=== PATIENT | male | born 1975 | race Caucasian/White ===

== ENCOUNTER 2016-09-28 15:18 | Emergency (ER) | payer OTHER ==
[2016-09-28 15:34] VITALS: BP 138/88
[2016-09-28] MEDS ORDERED: Ketorolac INJ* 30 MG/ML 1 ML VIAL IM ONE (16:19)
--- NOTE | 2016-09-28 16:25 | UC ---
Complaint Male HPI - HPI Summary HPI Summary: 40 year old male with complaints of right flank pain. Pain has been intermittent over the last 2 weeks. This afternoon pain became sharp. Denies fever, chills, nausea or vomiting. Denies problems or pain with urinating. Denies blood in the urine. Denies abdominal pain Hx of kidney stones 3 years ago. Was told he had more stones at that time No urology follow up - History of Current Complaint Chief Complaint: UCBackPain Stated Complaint: LOWER BACK PAIN Time Seen by Provider: 09/28/16 16:04 Hx Obtained From: Patient Onset/Duration: Gradual Onset, Lasting Weeks - 2, Worse Since - today Timing: Intermittent Severity Initially: Mild Severity Currently: Moderate Pain Scale Used: 0-10 Numeric - 8 Location: Flank - right Aggravating Factor(s): Nothing Associated Signs And Symptoms: Negative: Diaphoresis, Fever, Hematuria, Dysuria , Constipation, Blood in Stool, Rectal Pain, Appetite, Nausea, Vomiting(# Of Episodes =), Penile Swelling, Penile Discharge - Risk Factors Testicular Torsion: Negative - Allergies/Home Medications Allergies/Adverse Reactions: Allergies Allergy/AdvReac Type Severity Reaction Status Date / Time No Known Allergies Allergy Verified 09/28/16 15:34 PMH/Surg Hx/FS Hx/Imm Hx Previously Healthy: Yes Endocrine History Of: Denies: Thyroid Disease Cardiovascular History Of: Denies: Hypertension GI/ History Of: Reports: Renal Disease - KIDNEY STONES - Surgical History Surgical History: None - Family History Known Family History: Negative: Cardiac Disease, Hypertension, Diabetes - Social History Occupation: Employed Full-time Lives: With Family Alcohol Use: None Substance Use Type: None Smoking Status (MU): Never Smoked Tobacco Review of Systems Constitutional: Negative Skin: Negative Eyes: Negative ENT: Negative Respiratory: Negative Cardiovascular: Negative Gastrointestinal: Negative Genitourinary: Other - right flank pain Motor: Negative Neurovascular: Negative Musculoskeletal: Negative Neurological: Negative Psychological: Negative All Other Systems Reviewed And Are Negative: Yes Physical Exam Triage Information Reviewed: Yes Appearance: Well-Nourished, Ill-Appearing - mild, Pain Distress - mild Vital Signs: Initial Vital Signs Temp 98.4 F 09/28/16 15:31 Pulse 64 09/28/16 15:31 Resp 18 09/28/16 15:31 BP 138/88 09/28/16 15:31 Pulse Ox 97 09/28/16 15:31 Vital Signs Reviewed: Yes Eyes: Positive: Conjunctiva Clear. Negative: Discharge ENT: Positive: Hearing grossly normal. Negative: Pharyngeal erythema, Nasal congestion Neck: Positive: Supple, Nontender Respiratory: Positive: Lungs clear, Normal breath sounds Cardiovascular: Positive: RRR, No Murmur Abdomen Description: Positive: Nontender, No Organomegaly, Soft. Negative: CVA Tenderness (R), CVA Tenderness (L) Musculoskeletal: Positive: Strength Intact, ROM Intact Neurological: Positive: Alert, Muscle Tone Normal Psychological: Positive: Age Appropriate Behavior - pleasant and cooperative Skin: Negative: rashes, breakdown Complaint Male Course/Dx - Course Course Of Treatment: Toradol IM - with moderate relief of his pain. UA - concentrated urine. No imagine available here at today. Encourated increase fluids such as water. Education on how to management pain with ibuprofen. Education on straining urine. Follow up plan established - Differential Dx/Diagnosis Differential Diagnosis/HQI/PQRI: Urinary Tract Infection, Other - kidney stone Provider Diagnoses: Right flank pain. Likely kidney stone Discharge - Discharge Plan Condition: Stable Disposition: HOME Prescriptions: Ibuprofen TAB* [Motrin TAB* 800 MG] 800 mg PO Q6H PRN #30 tab PRN Reason: Pain Patient Education Materials: Flank Pain (ED), Kidney Stones (ED), Ibuprofen ( By mouth) Referrals: Herson Ernst MD [Primary Care Provider] - 2 Days Christiano Penny MD [Medical Doctor] - 1 Week Additional Instructions: Increase your fluids
== END 2016-09-28 17:03 | disposition home or self-care (01) ==
LOC: UCEAST 15:18
DX: R10.30 Lower abdominal pain, unspecified (principal); Z87.442 Personal history of urinary calculi
CPT/HCPCS: 81002; 96372; 99212; G0463; J1885

== ENCOUNTER 2017-06-03 19:50 | Emergency (ER) | payer OTHER ==
--- NOTE | 2017-06-03 20:55 | RAD ---
INDICATION: Right flank pain COMPARISON: CT April 26, 2010 TECHNIQUE: Noncontrast axial source images were acquired from the level hemidiaphragms to the symphysis pubis as part of CT imaging for renal stone. Lung bases: The lung bases are clear. Liver: The liver is enlarged with findings of hepatic steatosis. Noncontrast imaging shows no evidence of a hepatic mass or ductal dilatation. Gallbladder: There is cholelithiasis. There is no thickening of the gallbladder wall or pericholecystic fluid. Spleen: The spleen is normal in size. The noncontrast CT appearance is normal. Pancreas: Noncontrast imaging shows no pancreatic mass or ductal dilitation. Adrenal glands: No masses are identified. Kidneys/Bladder: There are multiple nonobstructive right renal calculi. These measure 2 to 3 mm. There are no other calculi of urinary significance. There is no mass on noncontrast imaging. The bladder appears normal. Adenopathy: There is no evidence of intraperitoneal or retroperitoneal adenopathy. Evaluation is limited without oral contrast. Fluid collections: There are no free or localized fluid collections. Vessels: The aorta and iliac vessels are normal in caliber. There are no significant atherosclerotic changes. The IVC appears normal Pelvic organs: The prostate and seminal vesicles appear normal GI tract: Evaluation of the bowel is limited without oral contrast. The stomach and small bowel appear grossly normal. There are scattered diverticula of the sigmoid colon but no CT evidence of acute diverticulitis. The lower GI tract is otherwise unremarkable. There are no obstructive findings. The appendix is visualized and appears normal. Soft tissues: No soft tissue abnormalities of the extraperitoneal abdomen or pelvis are identified. Osseous structures: There are no acute osseous findings. IMPRESSION: 1. Cholelithiasis. This may represent an incidental finding 2. Nonobstructive right renal calculi 3. Normal appendix 4. Scattered diverticula. No CT evidence of acute diverticulitis.
[2017-06-03 21:07] LABS: Hematocrit 40 % (42-52); Hemoglobin 13.6 g/dl (14.0-18.0); Mean Corpuscular HGB Conc 34 g/dl (31-36); Mean Corpuscular Hemoglobin 32 pg (27-31); Mean Corpuscular Volume 92 fL (80-94); Mean Platelet Volume 8 um3 (7.4-10.4); Red Blood Count 4.31 10^6/ul (4.0-5.4); Red Cell Distribution Width 13 % (10.5-15); White Blood Count 9.5 10^3/ul (3.5-10.8)
[2017-06-03] MEDS: NS 0.9% 1000 ML* 2,000 ML IV ONE ×2 (21:10→21:12)
[2017-06-03 21:22] LABS: Albumin 4.4 g/dL (3.2-5.2); BUN/Creatinine Ratio 14.3 (8-20); C Reactive Protein 2.81 mg/L (< 5.00); Calcium 9.4 mg/dL (8.6-10.3); EGFR African American 107.9 (>60); EGFR Non-African American 83.9 (>60); Potassium 3.5 mmol/L (3.5-5.0); Total Bilirubin 0.5 mg/dL (0.2-1.0); Total Protein 7.4 g/dL (6.4-8.9)
--- NOTE | 2017-06-03 21:40 | RAD ---
INDICATION: Right-sided nephrolithiasis. Hepatomegaly with hepatic steatosis and presumed incidental cholelithiasis on CT. COMPARISON: CT examination same date TECHNIQUE: Longitudinal and transverse scans of the right upper quadrant were obtained. Doppler interrogation of the hepatic and portal venous system was performed. FINDINGS: Liver: There is hepatomegaly with hepatic steatosis. There are no masses . The liver measures 19.7 cm in cephalocaudal dimension. Vessels: There is normal hepatic and portal venous flow. Bile ducts: There is no evidence of intrahepatic or extrahepatic ductal dilatation. The common duct measures 0.2 cm. Gallbladder: There is cholelithiasis. There may be a small gallbladder polyp. There is no evidence of thickening of the gallbladder wall or pericholecystic fluid. Pancreas: The pancreas is not visualized due to interfering bowel gas. Right kidney: The right kidney is normal in size and echogenicity. There are no masses or calculi. There is no evidence of hydronephrosis. The right kidney measures 12.3 x 5.9 x 7.7 cm. IVC and aorta: The aorta and superior vena cava appear normal. Fluid: There is no ascites. Other: None. IMPRESSION: Hepatomegaly with hepatic steatosis. Cholelithiasis.
[2017-06-03 22:13] LABS: Urine Bilirubin Negative (Negative); Urine Glucose Negative (Negative); Urine Nitrite Negative (Negative)
--- NOTE | 2017-06-03 22:31 | ED ---
Jeison Alexandre Rebecca, scribed for Adi Faulkner MD on 06/03/17 at 2027 . Back Pain - HPI Summary HPI Summary: Pt is a 41 y/o M who presents to ED c/o R flank pain. Sx began last night while at work and has been intermittent since onset. Currently, pain is mild ranked 1/ 10 but at its worst, the pain is 8/10. Pain does not radiate into the groin or down the LE. Sx aggravated and alleviated by nothing. Denies fever, chills, urinary frequency and hematuria. Confirms he has been eating normally. Prior similar episodes with Dx of kidney stones which which he took Vicodin which improved sx. - History of Current Complaint Chief Complaint: EDFlankPain Stated Complaint: PAIN LOWER BACK Time Seen by Provider: 06/03/17 20:08 Hx Obtained From: Patient Onset/Duration: Lasting Days - Yesterday, Still Present Onset/Duration: Still Present Back Pain Location: Is Discrete @ - R flank Severity Initially: Severe - 8/10 Severity Currently: Mild Pain Intensity: 1 Pain Scale Used: 0-10 Numeric Aggravating Symptom(s): Nothing Alleviating Symptom(s): Nothing Associated Signs And Symptoms: Positive: Flank Pain. Negative: Fever - Allergies/Home Medications Allergies/Adverse Reactions: Allergies Allergy/AdvReac Type Severity Reaction Status Date / Time No Known Allergies Allergy Verified 06/03/17 19:55 PMH/Surg Hx/FS Hx/Imm Hx Endocrine/Hematology History: Denies: Hx Thyroid Disease Cardiovascular History: Denies: Hx Hypertension History: Reports: Hx Kidney Stones, Hx Renal Disease - KIDNEY STONES Infectious Disease History: No Infectious Disease History: Denies: Traveled Outside the [place] in Last 30 Days - Family History Known Family History: Negative: Cardiac Disease, Hypertension, Diabetes - Social History Alcohol Use: None Substance Use Type: Reports: None Smoking Status (MU): Never Smoked Tobacco Review of Systems Negative: Fever, Chills Positive: flank pain - Right. Negative: frequency, hematuria All Other Systems Reviewed And Are Negative: Yes Physical Exam - Summary Physical Exam Summary: General: well-appearing, no pain distress Skin: warm, color reflects adequate perfusion, dry Head: normal Eyes: EOMI, ENRRIQUE ENT: normal Neck: supple, nontender Respiratory: CTA, breath sounds present Cardiovascular: RRR Abdomen: soft, nontender Bowel: present Musculoskeletal: strength/ROM intact, mid right flank tenderness to percussion Neurological: normal, sensory/motor intact, A&O x3 Psychological: affect/mood appropriate Triage Information Reviewed: Yes Vital Signs On Initial Exam: Initial Vitals Temp Pulse Resp BP Pulse Ox 98.3 F 69 16 158/86 97 06/03/17 19:56 06/03/17 19:56 06/03/17 19:56 06/03/17 19:56 06/03/17 19:56 Vital Signs Reviewed: Yes - [place] Coma Scale Coma Scale Total: 15 Diagnostics - Vital Signs Vital Signs Temp Pulse Resp BP Pulse Ox 06/03/17 20:04 68 95 06/03/17 20:03 143/98 06/03/17 19:56 98.3 F 69 16 158/86 97 - Laboratory Lab Results: Lab Results 06/03/17 06/03/17 06/03/17 Range/Units 20:51 20:51 20:51 WBC 9.5 (3.5-10.8) 10^3/ul RBC 4.31 (4.0-5.4) 10^6/ul Hgb 13.6 L (14.0-18.0) g/dl Hct 40 L (42-52) % MCV 92 (80-94) fL MCH 32 H (27-31) pg MCHC 34 (31-36) g/dl RDW 13 (10.5-15) % Plt Count 222 (150-450) 10^3/ul MPV 8 (7.4-10.4) um3 Neut % (Auto) 59.7 (38-83) % Lymph % (Auto) 26.2 (25-47) % O'Brien % (Auto) 9.5 H (1-9) % Eos % (Auto) 3.8 (0-6) % Baso % (Auto) 0.8 (0-2) % Absolute Neuts (auto) 5.7 (1.5-7.7) 10^3/ul Absolute Lymphs (auto) 2.5 (1.0-4.8) 10^3/ul Absolute Monos (auto) 0.9 H (0-0.8) 10^3/ul Absolute Eos (auto) 0.4 (0-0.6) 10^3/ul Absolute Basos (auto) 0.1 (0-0.2) 10^3/ul Absolute Nucleated RBC 0.01 10^3/ul Nucleated RBC % 0.1 INR (Anticoag Therapy) 1.10 (0.89-1.11) APTT 38.1 H (26.0-36.3) seconds Sodium 141 (133-145) mmol/L Potassium 3.5 (3.5-5.0) mmol/L Chloride 107 (101-111) mmol/L Carbon Dioxide 26 (22-32) mmol/L Anion Gap 8 (2-11) mmol/L BUN 14 (6-24) mg/dL Creatinine 0.98 (0.67-1.17) mg/dL Est GFR ( Amer) 107.9 (>60) Est GFR (Non-Af Amer) 83.9 (>60) BUN/Creatinine Ratio 14.3 (8-20) Glucose 92 (70-100) mg/dL Lactic Acid (0.5-2.0) mmol/L Calcium 9.4 (8.6-10.3) mg/dL Total Bilirubin 0.50 (0.2-1.0) mg/dL AST 27 (13-39) U/L ALT 36 (7-52) U/L Alkaline Phosphatase 59 (34-104) U/L C-Reactive Protein 2.81 (< 5.00) mg/L Total Protein 7.4 (6.4-8.9) g/dL Albumin 4.4 (3.2-5.2) g/dL Globulin 3.0 (2-4) g/dL Albumin/Globulin Ratio 1.5 (1-3) Lipase 23 (11.0-82.0) U/L Urine Color Urine Appearance Urine pH (5-9) Ur Specific [place] (1.010-1.030) Urine Protein (Negative) Urine Ketones (Negative) Urine Blood (Negative) Urine Nitrate (Negative) Urine Bilirubin (Negative) Urine Urobilinogen (Negative) Ur Leukocyte Esterase (Negative) Urine Glucose (Negative) 06/03/17 06/03/17 Range/Units 20:51 21:50 WBC (3.5-10.8) 10^3/ul RBC (4.0-5.4) 10^6/ul Hgb (14.0-18.0) g/dl Hct (42-52) % MCV (80-94) fL MCH (27-31) pg MCHC (31-36) g/dl RDW (10.5-15) % Plt Count (150-450) 10^3/ul MPV (7.4-10.4) um3 Neut % (Auto) (38-83) % Lymph % (Auto) (25-47) % O'Brien % (Auto) (1-9) % Eos % (Auto) (0-6) % Baso % (Auto) (0-2) % Absolute Neuts (auto) (1.5-7.7) 10^3/ul Absolute Lymphs (auto) (1.0-4.8) 10^3/ul Absolute Monos (auto) (0-0.8) 10^3/ul Absolute Eos (auto) (0-0.6) 10^3/ul Absolute Basos (auto) (0-0.2) 10^3/ul Absolute Nucleated RBC 10^3/ul Nucleated RBC % INR (Anticoag Therapy) (0.89-1.11) APTT (26.0-36.3) seconds Sodium (133-145) mmol/L Potassium (3.5-5.0) mmol/L Chloride (101-111) mmol/L Carbon Dioxide (22-32) mmol/L Anion Gap (2-11) mmol/L BUN (6-24) mg/dL Creatinine (0.67-1.17) mg/dL Est GFR ( Amer) (>60) Est GFR (Non-Af Amer) (>60) BUN/Creatinine Ratio (8-20) Glucose (70-100) mg/dL Lactic Acid 1.2 (0.5-2.0) mmol/L Calcium (8.6-10.3) mg/dL Total Bilirubin (0.2-1.0) mg/dL AST (13-39) U/L ALT (7-52) U/L Alkaline Phosphatase (34-104) U/L C-Reactive Protein (< 5.00) mg/L Total Protein (6.4-8.9) g/dL Albumin (3.2-5.2) g/dL Globulin (2-4) g/dL Albumin/Globulin Ratio (1-3) Lipase (11.0-82.0) U/L Urine Color Yellow Urine Appearance Clear Urine pH 7.0 (5-9) Ur Specific [place] 1.018 (1.010-1.030) Urine Protein Negative (Negative) Urine Ketones Negative (Negative) Urine Blood Negative (Negative) Urine Nitrate Negative (Negative) Urine Bilirubin Negative (Negative) Urine Urobilinogen Negative (Negative) Ur Leukocyte Esterase Negative (Negative) Urine Glucose Negative (Negative) Result Diagrams: 06/03/17 20:51 06/03/17 20:51 Lab Statement: Any lab studies that have been ordered have been reviewed, and results considered in the medical decision making process. - CT CT Abd/Pel CT Interpretation: Positive (See Comments) - 1. Cholelithiasis. This may represent an incidental finding 2. Nonobstructive right renal calculi 3. Normal appendix 4. Scattered diverticula. No CT evidence of acute diverticulitis. ED physician reviewed this radiology report and agrees. CT Interpretation Completed By: Radiologist - Ultrasound No standard instances Ultrasound Interpretation: Positive (See Comments) - Gallbladder US: Hepatomegaly with hepatic steatosis. Cholelithiasis. ED physician reviewed radiology report and agrees. Ultrasound Interpretation Completed By: Radiologist Re-Evaluation - Re-Evaluation First Eval Re-Evaluation Time: 21:07 Comment: Discussed CT results with the pt. Back Pain Course/Dx - Course Course Of Treatment: DISCUSSED RESULTS WITH PATIENT. WILL TREAT WITH OTC IBUPROFEN AND F/U PMD; RETURN TO ED IF WORSE. Assessment/Plan: BP noted and advised to follow up with PCP. Medications reviewed this visit. - Diagnoses Provider Diagnoses: Right flank pain Discharge - Discharge Plan Condition: Stable Disposition: HOME Patient Education Materials: Flank Pain (ED) Referrals: Herson Ernst MD [Primary Care Provider] - Additional Instructions: FOLLOW UP WITH YOUR DOCTOR. TAKE IBUPROFEN DIRECTED NEEDED. RETURN TO THE EMERGENCY DEPARTMENT FOR ANY WORSENING OF YOUR CONDITION; PAIN, FEVER, VOMITING, YOU FEEL ILL OR QUESTIONS OR CONCERNS. The documentation as recorded by the Jeison estevez Rebecca accurately reflects the service I personally performed and the decisions made by me, Adi Faulkner MD.
[2017-06-03 22:43] VITALS: BP 136/78
== END 2017-06-03 22:46 | disposition home or self-care (01) ==
LOC: ED 19:50
DX: R10.9 Unspecified abdominal pain (principal); Z87.442 Personal history of urinary calculi; K76.0 Fatty (change of) liver, not elsewhere classified; K80.20 Calculus of gallbladder without cholecystitis without obstruction; N20.0 Calculus of kidney
CPT/HCPCS: 36415; 74176; 76705; 80053; 81003; 83605; 83690; 85025; 85610; 85730; 86140; 96360; 96361; 99283